=== PATIENT | male | born 1965 | race Two or more races ===

== ENCOUNTER → 2017-01-15 | Outpatient (CLI) | payer BC ==
--- NOTE | ~2017-01-15 | US6 ---
[facility] A Service of [facility] RADIOLOGY TEXT RESULTS PATIENT: GISELLE AUGUSTIN LOCATION: [facility] : 61 UNIT #: [id number] AGE: [address]: BOZENA GRAY APRN SEX: M ORDER DR: [id number] [facility] [address] [place], [place] [address] [id number] O MR#: [id number] Acc #: [id number] NAME: GISELLE AUGUSTIN : 1965 SEX: M STUDY DATE/TIME: 01/15/2017 7:20 UNIT: [facility]US ROOM: STUDY DESCRIPTION: US Abdominal Limited Attending Physician: Bozena Gray Referring Physician: Bozena Gray Ordering Physician: Nicki Gray M.D. Primary Care Physician: Lisandro Michelle M.D. MEDICAL IMAGING REPORT This report is preliminary unless electronic signature is present EXAM Right upper quadrant abdominal ultrasound. INDICTIONS Elevated liver enzyme levels. PROCEDURE Pathak-scale and Doppler imaging right upper quadrant of the abdomen COMPARISON None FINDINGS Pancreas obscured not well seen on this study. The liver is difficult to evaluate in its entirety. Liver measures approximately 14.5 cm in length has slightly increased echotexture and coarsened echotexture compared with the right kidney. Right kidney measures 11.9 cm. No hydronephrosis. Unremarkable gallbladder. Common duct measures 4 mm. IMPRESSION 1. Slightly increasing and coarsened hepatic echotexture, suspicious for mild steatosis. 2. Pancreas obscured and not well seen. Dictated by... Caden Cho M.D. THIS IS AN ELECTRONICALLY VERIFIED REPORT Caden Cho M.D. at 01/16/2017 8:27 AM EED/norman TD: 01/15/2017 15:01 [facility] A Service [facility] RADIOLOGY TEXT RESULTS PATIENT: GISELLE AUGUSTIN LOCATION: [facility] : 61 UNIT #: [id number] AGE: [address]: BOZENA GRAY APRN SEX: M ORDER DR: JOB #: [id number] MEDICAL IMAGING REPORT Page 1 of 1 COPY
== END | disposition home or self-care (01) ==
LOC: CGUS 06:51
DX: R74.8 Abnormal levels of other serum enzymes (principal); K76.89 Other specified diseases of liver
CPT/HCPCS: 76705